=== PATIENT | male | born 1955 | race Caucasian/White ===

== ENCOUNTER 2018-03-23 15:06 | Emergency (ER) | payer OTHER ==
[2018-03-23] MEDS ORDERED: NS 1,000 ML IV ONE (15:26)
[2018-03-23] MEDS ORDERED: ONDANSETRON 4 MG/2 ML VIAL IVP ONE (15:27)
[2018-03-23] MEDS ORDERED: ACETAMINOPHEN 325 MG TAB PO ONE (15:33)
[2018-03-23 15:43] LABS: PLATELET COUNT 218 10^3/uL (150-400)
--- NOTE | 2018-03-23 15:51 | EDPHY ---
H & P Stated Complaint: n/v/d moses thinks may have gotten too hot working outside Time Seen by Provider: 03/23/18 15:14 HPI/ROS: CHIEF COMPLAINT: Nausea vomiting HISTORY OF PRESENT ILLNESS: This is a healthy 62-year-old male who presents with 4 hr of nausea and vomiting. He also had 1 small diarrheal stool. He was working outside today, in 95 degree weather, on a roof. After a couple hours of this he began to feel sick to his stomach. He came off the roof and sat in an air-conditioned room for about 20 min and then vomited 6 times in sequence. He has had a couple bouts of emesis since then. No blood in the vomitus. He denies abdominal pain. He has not had fever. No ill contacts. No known bad food. He does report a mild global headache. No visual changes, confusion, numbness, or weakness. He thinks that all of this might be a reaction to the heat. REVIEW OF SYSTEMS: A ten point review of systems was performed and is negative with the exception of the items mentioned in the HPI. 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 He is . He does not use tobacco products, illicit drugs, or alcohol. General Appearance: Alert. Vital signs reviewed. Eyes: Pupils equal and round, no conjunctival injection, no discharge. Anicteric. ENT, Mouth: Mucous membranes are dry, no oropharyngeal erythema or edema. Neck: No lymphadenopathy, supple. Respiratory: Lungs are clear to auscultation; no wheezes, rales, or rhonchi. Cardiovascular: Regular rate and rhythm; no murmur, rub, or gallop. Gastrointestinal: Abdomen is soft with mild tenderness in the right upper quadrant, no guarding, no masses or organomegaly, bowel sounds normal. Skin: Warm and dry, no rashes on exposed skin, normal color. Back: Nontender to palpation over the thoracolumbar spine. No CVAT. Extremities: No lower extremity edema, no calf tenderness or swelling. Neurological: Alert and oriented. Moving all four extremities easily and equally. Psychiatric: Normal affect. - Personal History Current Tetanus/Diphtheria Vaccine: Yes - Medical/Surgical History Hx Asthma: No Hx Chronic Respiratory Disease: No Hx Diabetes: No Hx Cardiac Disease: No Hx Renal Disease: No Hx Cirrhosis: No Hx Alcoholism: No Hx HIV/AIDS: No Hx Splenectomy or Spleen Trauma: No Other PMH: denies - Social History Smoking Status: Never smoked Constitutional: Initial Vital Signs Temperature (C) 36.5 C 03/23/18 15:09 Heart Rate 63 03/23/18 15:09 Respiratory Rate 18 03/23/18 15:09 Blood Pressure 143/91 H 03/23/18 15:09 O2 Sat (%) 100 03/23/18 15:09 O2 Delivery Mode Room Air Allergies/Adverse Reactions: No Known Allergies Allergy (Unverified 03/23/18 15:08) Home Medications: Medication Instructions Recorded NK [No Known Home Meds] 03/23/18 Medical Decision Making ED Course/Re-evaluation: At the time of my evaluation IV normal saline was infusing. The patient has refused Zofran. He he was given 650 mg Tylenol for what he describes as a mild headache. Patient was re-evaluated at 4:45 p.m.. He is feeling much better. He is receiving his 2nd L of IV fluid, normal saline. He no longer has headache. He has not taken an antiemetic but has had no further vomiting or diarrhea. I think that he has likely experienced heat exhaustion. His symptoms do not meet criteria for heat stroke. Gastroenteritis seems less likely, given the fact that he is quickly improved and has no further symptoms. He does have leukocytosis. I do not think that he has cholecystitis--LFTs and lipase, aside from bilirubin, are normal. 2nd exam of his abdomen shows it to be soft and nontender (he had mild right upper quadrant tenderness on 1st exam). I have no suspicion of urinary tract infection. - Data Points Laboratory Results: Laboratory Results 03/23/18 15:35 03/23/18 15:35 Medications Given: Discontinued Medications Acetaminophen (Tylenol) 650 mg PO EDNOW ONE Stop: 03/23/18 15:34 Last Admin: 03/23/18 15:37 Dose: 650 mg Sodium Chloride (Ns) 1,000 mls @ 0 mls/hr IV ONCE ONE PRN Reason: Wide Open Stop: 03/23/18 15:27 Last Admin: 03/23/18 15:37 Dose: 1,000 mls Ondansetron HCl (Zofran) 4 mg IVP EDNOW ONE Stop: 03/23/18 15:28 Last Admin: 03/23/18 15:37 Dose: 4 mg Departure - Departure Disposition: Home, Routine, Self-Care Clinical Impression: Heat exhaustion Qualifiers: Encounter type: initial encounter Qualified Code(s): T67.5XXA - Heat exhaustion , unspecified, initial encounter Condition: Good Instructions: Heat Exhaustion (ED) Referrals: NONE *PRIMARY CARE P,. [Primary Care Provider] - As per Instructions Lauro Huerta DO [Doctor of Osteopathy] - As per Instructions
[2018-03-23 17:59] VITALS: BP 129/78
== END 2018-03-23 17:59 | disposition home or self-care (01) ==
DX: T67.5XXA Heat exhaustion, unspecified, initial encounter (principal)
CPT/HCPCS: 96374; J2405